=== PATIENT | female | born 1985 | race Caucasian/White ===

== ENCOUNTER 2019-06-15 14:28 | Emergency (ER) | payer OTHER ==
[2019-06-15 14:36] VITALS: BP 101/54; PULSE 77; TEMP 98; BMI 19.3
[2019-06-15] MEDS ORDERED: SODIUM CHLORIDE 0.9% 500 ML INFUS.BAG IV ONE (15:07)
[2019-06-15] MEDS ORDERED: METOCLOPRAMIDE HCL INJECTION 10 MG/2 ML VIAL IVPUSH ONE (15:07)
--- NOTE | 2019-06-15 15:07 | PDOC ---
History of Present Illness - General Chief Complaint: Headache Stated Complaint: HEADACHE Time Seen by Provider: 06/15/19 14:49 History Source: Patient - History of Present Illness Initial Comments: 06/15/19 1 34-year-old female complaining of headache on and off for 1 year. Patient reports that she has been taking Tylenol and ibuprofen. Patient reports headaches to be frontal in nature with slight photophobia. Patient reports that she took ibuprofen this time with no relief in symptoms and she has been had having headache consistently for the last 3 days. Denies nausea, vomiting, diarrhea, abdominal pain, fever/chills, neck pain. Past History - Past Medical History Allergies/Adverse Reactions: Allergies Allergy/AdvReac Type Severity Reaction Status Date / Time No Known Allergies Allergy Verified 06/15/19 14:36 Home Medications: Ambulatory Orders Vit/Iron Fum/Folic AC [ Tablet] 1 tab PO DAILY 02/07/14 Unobtainable Home Med List 0 dose .ROUTE UTDICT 02/07/14 Ondansetron HCl [Zofran] 4 mg PO BID PRN #30 tablet 02/08/14 Asthma: No Cancer: No Cardiac Disorders: No COPD: No Diabetes: No HTN: No Seizures: No Thyroid Disease: No - Immunization History Immunization Up to Date: Yes - Psycho Social/Smoking Cessation Hx Smoking History: Never smoked Have you smoked in the past 12 months: No Hx Alcohol Use: No Drug/Substance Use Hx: No Substance Use Type: None Hx Substance Use Treatment: No *Physical Exam - Vital Signs Last Vital Signs Temp Pulse Resp BP Pulse Ox 98 F 77 18 101/54 L 100 06/15/19 14:34 06/15/19 14:34 06/15/19 14:34 06/15/19 14:34 06/15/19 14:34 - Physical Exam General Appearance: Yes: Appropriately Dressed Respiratory/Chest: positive: Lungs Clear, Normal Breath Sounds Cardiovascular: positive: Regular Rhythm, Regular Rate Gastrointestinal/Abdominal: positive: Normal Bowel Sounds, Soft. negative: Tender Extremity: positive: Normal Capillary Refill, Normal Inspection, Normal Range of Motion Integumentary: positive: Normal Color, Dry, Warm Neurologic: positive: hvac project manager II-XII NML intact, Fully Oriented, Alert, Normal Mood/ Affect, Normal Response, Motor Strength 5/5, Finger to Nose (intact) ED Treatment Course - LABORATORY CBC & Chemistry Diagram: 06/15/19 15:43 06/15/19 15:43 ED Progress Note - Progress Note Progress Note: 06/15/19 17:10 A: headache P: cbc cmp ct head: negative urine : neg Medical Decision Making - Medical Decision Making Patient had one episode of vomiting in the ER. No abnormal neuro findings. Will CT head to rule out any acute cause. Discharge - Discharge Information Problems reviewed: Yes Clinical Impression/Diagnosis: Headache Qualifiers: Headache type: unspecified Headache chronicity pattern: acute headache Intractability: intractable Qualified Code(s): R51 - Headache Disposition: HOME - Follow up/Referral Referrals: Nicolasa Rodas MD [Primary Care Provider] - Levar Sofia MD [Staff Physician] - - Patient Discharge Instructions Patient Printed Discharge Instructions: Tension Headache Additional Instructions: Drink plenty of fluids You may take Tylenol or ibuprofen for headache. It is very important that you follow-up with a neurologist. A referral name was given to you today. Return to the emergency room for any worsening symptoms - Post Discharge Activity Work/Back to School Note: Back to Work
[2019-06-15] MEDS ORDERED: METOCLOPRAMIDE HCL INJECTION 10 MG/2 ML VIAL ONE (15:48)
[2019-06-15 16:17] LABS: HEMOGLOBIN 12.4 GM/dL (10.7-15.3); MCH 29.8 pg (25.7-33.7); MCHC 32.7 g/dl (32.0-36.0); MEAN CELL VOLUME 91.2 fl (80-96); MEAN PLT VOLUME 8.6 fl (7.5-11.1); PLATELET COUNT 213 K/MM3 (134-434); RBC 4.17 M/mm3 (3.60-5.2); RDW 13.2 % (11.6-15.6); WHITE BLOOD COUNT 5.4 K/mm3 (4.0-10.0)
[2019-06-15 16:45] LABS: BLOOD UREA NITROGEN 13.9 mg/dL (7-18); CALCIUM 8.7 mg/dL (8.5-10.1); CREATININE 0.7 mg/dL (0.55-1.3); POTASSIUM 3.9 mmol/L (3.5-5.1)
== END 2019-06-15 19:25 | disposition home or self-care (01) ==
LOC: JERFT 14:28
PROC: 3E033GC Introduction of Other Therapeutic Substance into Peripheral Vein, Percutaneous Approach (ICD-10-PCS; principal; 2019-06-15)
DX: R51 Headache (principal)
CPT/HCPCS: 36415; 70450-TC; 80048; 84703; 85027; 99282-25